=== PATIENT | male | born 2000 | race Caucasian/White ===

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

== ENCOUNTER → 2021-02-19 11:34 | Outpatient (CLI) | payer OTHER, SELFPAY | PROVIDERS: Visit Provider Physician Assistant | DX: U07.1 COVID-19 (principal) | CPT/HCPCS: 87635; U0005; U0003 ==

== ENCOUNTER 2022-08-06 22:39 | Emergency (ER) | payer BC, SELFPAY ==
[2022-08-06 22:39] VITALS: BP 138/80; PULSE 99; RESP 16; TEMP 36.1; BMI 36.3
[2022-08-06] MEDS: Mag Hydrox/Al Hydrox/Simeth 30 ML UDC PO (23:19)
[2022-08-06] MEDS: Ondansetron ODT 4 MG Tablet PO (23:19)
--- NOTE | 2022-08-07 00:03 | ED.VIS.GI ---
HPI HPI - GI History of Present Illness Chief Complaint: Abd Pain Narrative Narrative: 21-year-old male presenting with epigastric pain, nausea. Patient states this is a new problem for him. He states it seems to be flared up by fast food and spicy food. Patient has no history of stomach ulcers or GERD. He has not had any fevers. He denies vomiting or constipation. No diarrhea. No surgeries in his abdomen previously. Patient states the onset of this was about 2 weeks ago. Patient states he was seen in urgent care and was told to do a brat diet. He was not started on a PPI. PFSH PFSH Home Medications ondansetron HCl 8 mg tablet 8 mg PO Q8H PRN nausea and vomiting #20 tabs 07/24/21 [Rx Last Taken Unknown] omeprazole 40 mg capsule,delayed release 40 mg PO DAILY #30 caps 08/06/22 [Rx Last Taken Unknown] ondansetron 4 mg disintegrating tablet 4 mg PO Q8H PRN PRN Nausea #20 tabs 08/06/22 [Rx Last Taken Unknown] sucralfate 100 mg/mL oral suspension (Carafate) 10 ml PO BID PRN epigastric pain #400 mL 08/06/22 [Rx Last Taken Unknown] Allergy/AdvReac Type Severity Reaction Status Date / Time No Known Allergies Allergy Verified 07/24/21 09:43 Family History Other Cancer Diabetes Hypertension Surgical History History of foot surgery Social History Smoking Status: Current some day smoker tobacco type: e-cigarettes ROS ROS ED Constitutional Constitutional ED: Denies chills, fever(s) or sweats Eyes Eyes: Denies blurry vision or change in vision ENT ENT ED: Denies ear pain or sore throat Cardiovascular Cardiovascular: Denies chest pain, palpitations or racing heartbeat Respiratory/Chest Respiratory/Chest: Denies cough, dyspnea or sputum Gastrointestinal Gastrointestinal: Reports abdominal pain and nausea; Denies constipation, diarrhea or vomiting Genitourinary Genitourinary ED: Denies dysuria, hematuria or urinary frequency Musculoskeletal Musculoskeletal: Denies arthralgias, myalgias or neck pain Integumentary Denies abscess, Abrasions or rash Neurologic Neurologic: Denies headache(s), paresthesias or weakness Psychiatric Psychiatric: Denies anxiety, depression, suicidal ideation or suicidal thoughts Endocrine Endocrinology: Denies polydipsia or polyuria EXAM Physical Exam Const Vital Signs: 08/06/22 22:39 08/06/22 22:39 Temperature 97.0 F L 97.0 F L Temperature Source Temporal Temporal Pulse Rate 99 99 Respiratory Rate 16 16 Blood Pressure 138/80 H 138/80 H Blood Pressure Mean 99 99 General Appearance ED: Negative for pallor HEENT Reports normocephalic and moist mucous membranes Eyes PERRL and EOMs intact bilaterally Resp normal respiratory effort Cardio regular rate and regular rhythm GI GI Narrative: Very mild midepigastric pain. Negative Perez sign Narrative: Deferred Neuro oriented x3 and CN's II-XII intact bilaterally Sensorium / Orientation: alert Motor Exam: strength 5/5 throughout Psych mental status grossly normal Attitude: No agitated Skin no rashes or lesions noted and no wounds General Skin Exam: Negative for jaundice or pallor MDM MDM MDM Narrative Medical decision making narrative: Patient presenting with very mild epigastric pain. Its worsened by spicy food and fast food. This likely gastritis versus GERD. Could likely be gastric ulcer. Patient given GI cocktail and Zofran. He feels improved after this. I do not believe he needs blood work or imaging. He is otherwise healthy. I will give him follow-up with GI. He started on a PPI and Zofran. He is given Carafate as well. Patient stable for discharge at this time. Impression: 1. Epigastric pain 2. Nausea Discharge Plan Triage Chief Complaint: Abd Pain ED Provider: Laith Grimaldo Dx/Rx/DC Orders Instructions: GERD Lifestyle Changes, ED GERD (Adult) Prescriptions: New ondansetron 4 mg tablet,disintegrating 4 mg PO Q8H PRN PRN (Reason: Nausea) Qty: 20 0RF omeprazole 40 mg capsule,delayed release(DR/EC) 40 mg PO DAILY Qty: 30 0RF sucralfate [Carafate] 100 mg/mL suspension 10 ml PO BID PRN (Reason: epigastric pain) Qty: 400 0RF No Action ondansetron HCl 8 mg tablet 8 mg PO Q8H PRN (Reason: nausea and vomiting) Qty: 20 0RF Primary Care Provider: Care Physician,No Primary Referrals: Friend,Niko, [Med Staff - Active Staff] - 3-5 Days Care Physician,No Primary [Primary Care Provider] - Disposition Disposition: Home, Self Care
== END 2022-08-07 00:38 | disposition home or self-care (01) ==
LOC: ED 23:15
PROVIDERS: Emergency Provider Student in an Organized Health Care Education/Training Program; Visit Provider Student in an Organized Health Care Education/Training Program
DX: R10.13 Epigastric pain (principal); R11.0 Nausea; F17.290 Nicotine dependence, other tobacco product, uncomplicated
CPT/HCPCS: 99283

== ENCOUNTER → 2022-08-19 | Outpatient (CLI) | payer BC, SELFPAY ==
[2022-08-19 15:29] LABS: Absolute Lymphocyte Count 1.58 X10^3/uL (0.83-4.51); Absolute Neutrophil Count 3.4 X10^3/uL (2.0-7.7); Basophil# 0.05 X10^3/uL; Basophil% 0.9 % (0-1); Eosinophil# 0.08 X10^3/uL; Eosinophils% 1.5 % (0-5); Hematocrit 49.8 % (40-54); Hemoglobin 16.5 g/dL (13.0-16.5); Lymphocyte # 1.58 X10^3/ul (0.83-4.51); Lymphocyte % 29.2 % (19-41); Mean Corp Hgb Conc 33.1 g/dL (32-36); Mean Corpuscular Hgb 28.5 pg (27.0-32.0); Mean Platelet Vol. 11.3 fl (6.2-12.0); Monocyte# 0.32 X10^3/uL; Monocyte% 5.9 % (0-10); NRBC Flagged by Analyzer 0 % (0-5); Neutrophil # 3.38 X10^3/uL (2.7-7.7); Neutrophil % 62.3 % (47-70); Platelet Count 279 K/mm3 (150-450); RBC Distribution Width CV 12.8 % (11.6-14.6); RBC Distribution Width SD 39.8 fl (35.1-43.9); Red Blood Count 5.79 M/mm3 (4.6-6.2); White Blood Count 5.4 K/mm3 (4.4-11.0)
[2022-08-19 16:01] LABS: ALB/GLOB Ratio 1.2 RATIO (0.9-2.4); AST(SGOT) 15 U/L (15-37); Alanine Aminotransfer ALT/SGPT 45 U/L (16-61); Albumin, Serum 4.4 g/dL (3.2-5.0); Alkaline Phosphatase 73 U/L (45-117); Anion Gap 6 (5-15); BUN 10 mg/dL (7-18); BUN/Creat Ratio 7.5 RATIO (10-20); Calcium,Total 10.1 mg/dL (8.5-10.1); Chloride 106 mmol/L (98-107); Cholesterol 183 mg/dL (200); Creatinine, Serum 1.34 mg/dL (0.70-1.30); EST Glomerular Filtration Rate 72 mL/min (>60); Est Glom Filt Rate - Afr Amer 87 mL/min (>60); Globulin 3.7 g/dL (2.2-4.2); Glucose 87 mg/dL (74-106); High Density Lipoprotein 38 mg/dL; Protein, Total 8.1 g/dL (6.4-8.2); Sodium Level 140 mmol/L (136-145); Triglycerides 110 mg/dL; Very Low Density Lipoprotein 22 mg/dL (5-40)
== END | disposition home or self-care (01) ==
PROVIDERS: Visit Provider Internal Medicine
DX: R10.13 Epigastric pain (principal); R74.8 Abnormal levels of other serum enzymes; E78.2 Mixed hyperlipidemia
CPT/HCPCS: 36415; 80053; 80061; 85025

== ENCOUNTER → 2022-08-27 | Outpatient (CLI) | payer BC, SELFPAY ==
[2022-08-27 14:58] LABS: ALB/GLOB Ratio 1.2 RATIO (0.9-2.4); AST(SGOT) 16 U/L (15-37); Alanine Aminotransfer ALT/SGPT 51 U/L (16-61); Albumin, Serum 4.1 g/dL (3.2-5.0); Alkaline Phosphatase 67 U/L (45-117); Anion Gap 3 (5-15); BUN 11 mg/dL (7-18); BUN/Creat Ratio 7.9 RATIO (10-20); Bilirubin, Direct 0.36 mg/dL (0.00-0.30); Calcium,Total 9.3 mg/dL (8.5-10.1); Chloride 109 mmol/L (98-107); EST Glomerular Filtration Rate 68 mL/min (>60); Est Glom Filt Rate - Afr Amer 83 mL/min (>60); Globulin 3.4 g/dL (2.2-4.2); Glucose 100 mg/dL (74-106); Potassium 3.9 mmol/L (3.5-5.1); Protein, Total 7.5 g/dL (6.4-8.2); Sodium Level 142 mmol/L (136-145)
== END | disposition home or self-care (01) ==
LOC: LAB 13:35
PROVIDERS: PCP Internal Medicine; Referring Provider Nurse Practitioner Adult Health; Visit Provider Nurse Practitioner Adult Health
DX: R17 Unspecified jaundice (principal)
CPT/HCPCS: 36415; 80053; 82248

== ENCOUNTER → 2022-08-31 | Outpatient (CLI) | payer BC, SELFPAY ==
[2022-08-31 09:58] LABS: Bacteria 0 SEEN /hpf (None Seen); Mucous, Urine 0 SEEN /hpf (<or=2+); Red Blood Cells-Urine 0 SEEN /hpf (0-5); Squamous Epithelial Cells - UA 0 SEEN /hpf (0-5)
[2022-08-31 10:41] LABS: Color, Urine Yellow (Yellow); Glucose, Dipstick Normal (Normal); Ketone-Dipstick 5 mg/dl (Negative); Leukocyte Esterase-Dipstick Negative /ul (Negative); Nitrite-Dipstick Negative (Negative); Occult Blood-Urine Negative /ul (Negative); Protein-Dipstick 30 mg/dl (Negative); Specific Gravity, Urine 1.025 (1.002-1.030); Urine Bilirubin Dipstick Negative (Negative); Urine Clarity Clear (Clear); Urine Urobilinogen 1 mg/dl (Normal)
[2022-08-31 10:50] LABS: White Blood Cells 0-5 SEEN /hpf (0-5)
== END | disposition home or self-care (01) ==
LOC: LAB 09:55
PROVIDERS: PCP Internal Medicine; Referring Provider Nurse Practitioner Adult Health; Visit Provider Nurse Practitioner Adult Health
DX: R79.89 Other specified abnormal findings of blood chemistry (principal)
CPT/HCPCS: 81001

== ENCOUNTER → 2022-09-02 | Outpatient (CLI) | payer BC, SELFPAY ==
--- NOTE | 2022-09-02 10:00 | US_ITS ---
EXAM: US abdomen, complete. HISTORY: post prandial upper abd pain and diarrhea COMPARISON: None. LIMITATIONS: None. LIVER: Borderline enlarged measuring 17.6 cm. PORTAL VEINS: Normal. GALLBLADDER Size: Normal. Stones/sludge: None. Wall thickness: Normal measuring 2 mm. Pericholecystic fluid: None. Sonographic Perez sign: Negative. EXTRAHEPATIC BILE DUCTS: The partially visualized common duct is normal in caliber measuring 3 mm. PANCREAS: Not well visualized. AORTA: Visualized portion of the abdominal aorta is normal in caliber. KIDNEYS: Normal. SPLEEN: Mildly enlarged measuring 14.6 cm in greatest dimension. ASCITES: None. OTHER: None. CONCLUSION: No gallstones. Mild splenomegaly. Electronically Signed: Horacio Tamez MD at 19:55 EDT , US/Abdomen Complete IMPRESSION: undefined
== END | disposition home or self-care (01) ==
PROVIDERS: PCP Internal Medicine; Referring Provider Nurse Practitioner Adult Health; Visit Provider Nurse Practitioner Adult Health
DX: R10.13 Epigastric pain (principal)
CPT/HCPCS: 76700

== ENCOUNTER → 2022-09-23 | Outpatient (CLI) | payer BC, SELFPAY ==
--- NOTE | 2022-09-23 09:44 | NM_ITS ---
Nuclear medicine HIDA scan Indication: Postprandial epigastric and right upper quadrant pain with nausea and vomiting COMPARISON STUDIES : NM - None. CR - Not available for review at this time. CT - Not available for review at this time. MR - Not available for review at this time. Ultrasound-09/02/2022 Technique: 5.5 mCi of technetium 99m labeled mebrofenin was injected intravenously followed by standard imaging. 2.6 mcg of CCK was injected intravenously for calculation of gallbladder ejection fraction. Findings: There is homogenous activity throughout the liver. Normal excretion of isotope into the proximal small bowel. Activity in the gallbladder is identified at 15 minutes. Gallbladder ejection fraction measures 91%. NM/Hepatobilliary Img w/Pharm Int IMPRESSION: Normal filling of the gallbladder without evidence of acute cholecystitis or biliary obstruction. Electronically Signed: Huan Enciso (Brooks), at 11:30 EDT ,
== END | disposition home or self-care (01) ==
PROVIDERS: PCP Internal Medicine; Referring Provider Nurse Practitioner Adult Health; Visit Provider Nurse Practitioner Adult Health
DX: R10.13 Epigastric pain (principal); R17 Unspecified jaundice
CPT/HCPCS: 78227; A9537; J2805

== ENCOUNTER → 2022-11-04 | Outpatient (CLI) | payer BC, SELFPAY ==
[2022-11-04 12:02] LABS: Absolute Lymphocyte Count 1.93 X10^3/uL (0.83-4.51); Absolute Neutrophil Count 4.1 X10^3/uL (2.0-7.7); Basophil# 0.08 X10^3/uL; Basophil% 1.2 % (0-1); Eosinophil# 0.11 X10^3/uL; Eosinophils% 1.7 % (0-5); Hematocrit 48.7 % (40-54); Hemoglobin 15.9 g/dL (13.0-16.5); Lymphocyte # 1.93 X10^3/ul (0.83-4.51); Lymphocyte % 29.3 % (19-41); Mean Corp Hgb Conc 32.6 g/dL (32-36); Mean Corpuscular Hgb 27.9 pg (27.0-32.0); Mean Corpuscular Volume 85.6 fL (80-94); Mean Platelet Vol. 10.8 fl (6.2-12.0); Monocyte# 0.37 X10^3/uL; Monocyte% 5.6 % (0-10); NRBC Flagged by Analyzer 0 % (0-5); Neutrophil # 4.08 X10^3/uL (2.7-7.7); Neutrophil % 61.9 % (47-70); Platelet Count 274 K/mm3 (150-450); RBC Distribution Width SD 39.8 fl (35.1-43.9); Red Blood Count 5.69 M/mm3 (4.6-6.2); White Blood Count 6.6 K/mm3 (4.4-11.0)
[2022-11-04 12:05] LABS: Erythrocyte Sedimentation Rate 3 mm/hr (0-20)
[2022-11-04 12:40] LABS: Hemoglobin A1c 5.1 % (3.8-5.6)
[2022-11-04 12:43] LABS: ALB/GLOB Ratio 1.1 RATIO (0.9-2.4); AST(SGOT) 21 U/L (15-37); Alanine Aminotransfer ALT/SGPT 42 U/L (16-61); Albumin, Serum 4.1 g/dL (3.2-5.0); Alkaline Phosphatase 72 U/L (45-117); Anion Gap 7 (5-15); BUN 12 mg/dL (7-18); BUN/Creat Ratio 9.4 RATIO (10-20); CRP < 2.90 mg/L (0.0-3.0); Calcium,Total 8.9 mg/dL (8.5-10.1); Chloride 106 mmol/L (98-107); Creatinine, Serum 1.28 mg/dL (0.70-1.30); EST Glomerular Filtration Rate 75 mL/min (>60); Est Glom Filt Rate - Afr Amer 91 mL/min (>60); Ferritin 107 ng/mL (26-388); Globulin 3.6 g/dL (2.2-4.2); Glucose 94 mg/dL (74-106); LDH 153 U/L (87-241); Potassium 4.2 mmol/L (3.5-5.1); Protein, Total 7.7 g/dL (6.4-8.2); Sodium Level 139 mmol/L (136-145)
[2022-11-04 13:02] LABS: HIV - WCH Non-Reactive (Nonreactive)
[2022-11-05 13:09] LABS: Anti-Centromere B Ab <0.2 AI (0.0-0.9); Anti-Chromatin <0.2 AI (0.0-0.9); Anti-Jo <0.2 AI (0.0-0.9); Anti-Mitochondrial AB <20.0 Units (0.0-20.0); Anti-Scleroderma-70 AB <0.2 AI (0.0-0.9); Anti-dsDNA Ab 2 IU/mL (0-9); RNP Ab <0.2 AI (0.0-0.9); SJOGREN'S Anti-SS-A test < 0.2 AI (0.0-0.9); SJOGREN'S Anti-SS-B test < 0.2 AI (0.0-0.9); Smith Ab <0.2 AI (0.0-0.9)
[2022-11-08 15:07] LABS: AFP, Tumor Marker < 1.8 ng/mL (0.0-5.7); Angiotensin Convert Enzyme 37 U/L (14-82); Anti-Smooth Muscle ABS 46 Units (0-19); Ceruloplasmin 20.1 mg/dL (16.0-31.0); Copper, Serum or Plasma 88 ug/dL (63-121); Cytoplasmic Ab (C-ANCA) 1:20 titer (Neg:<1:20); HEPATITIS B SURFACE AG Negative (Negative); Haptoglobin 133 mg/dL (17-317); Hep C Antibodies Non Reactive (Non Reactive); Hepatitis A IgM Antibody Negative (Negative); Hepatitis B Core AB IgM Negative (Negative); Perinuclear Ab (P-ANCA) <1:20 titer (Neg:<1:20)
== END | disposition home or self-care (01) ==
LOC: LAB 11:32
PROVIDERS: PCP Internal Medicine; Referring Provider Nurse Practitioner Adult Health; Visit Provider Nurse Practitioner Adult Health
DX: R17 Unspecified jaundice (principal); R82.2 Biliuria; R79.89 Other specified abnormal findings of blood chemistry
CPT/HCPCS: 36415; 80053; 80074; 82105; 82140; 82164; 82390; 82525; 82728; 83010; 83036; 83516; 83615; 85025; 85610; 85652; 86140; 86225; 86235; 86256; 86703

== ENCOUNTER → 2022-12-22 | Outpatient (CLI) | payer BC, SELFPAY ==
--- NOTE | 2022-12-22 11:33 | US_ITS ---
INDICATION: Male, 22 years old. Epigastric pain, elevated bilirubin EXAMINATION: Ultrasound right upper quadrant TECHNIQUE: Munoz scale and color doppler imaging was performed of the right upper quadrant. Imaging was limited by bowel gas. COMPARISON: Abdominal ultrasound September 02, 2022 FINDINGS: LIVER: There is normal echotexture. Liver size is 17.77 cm. No focal hepatic lesion. There is no free fluid. GALLBLADDER AND BILIARY TREE: No shadowing gallstone, pericholecystic fluid or gallbladder wall thickening is demonstrated. Gallbladder wall thickness is 2.8 mm. The proximal common bile duct measures 2.3 mm, which is within normal limits for the patient''s age. Sonographic Perez''s sign: Negative. PANCREAS: The pancreas is obscured. RIGHT KIDNEY: Kidney size 13.02 x 6.78 x 6.69 cm. Cortical thickness is 2.59 cm. US/Abdomen Limited IMPRESSION: The pancreas is obscured. Liver size upper normal, but stable. Otherwise, normal right upper quadrant ultrasound. Electronically Signed: Ten Farah MD at 12:28 EDT Reading Location ID and State: [id number] / Unknown , Service support ,
== END | disposition home or self-care (01) ==
LOC: US 10:47
PROVIDERS: PCP Internal Medicine; Referring Provider Internal Medicine Gastroenterology; Visit Provider Internal Medicine Gastroenterology
DX: R10.13 Epigastric pain (principal); R82.2 Biliuria
CPT/HCPCS: 76705

== ENCOUNTER 2025-01-21 11:30 | Outpatient (RCR) | payer BC, SELFPAY ==
--- NOTE | 2025-01-03 12:52 | HP.PTEVAL_ITS ---
Patient's Visit Information Visit Information Visit Information: SAQIB HURT is a 24 year old M referred to Physical Therapy by Dr. Paddy Barfield MD with a diagnosis of Right Shoulder Instability. Date of Evaluation: 01/03/25 Physical Therapist: Luisana Nava DPT Visit Plan Frequency: 2x /Week Duration: 4 Weeks Plan: Scapular s/s- below 90 degrees to start HEP Given IE: postural correction, scap retraction, scap PU, levator stretch, table walk away Subjective Subjective: Right shoulder pain- going down a slip and slide- was trying to stop himself- didn't feel a pop but it has been achy since- 07 of December- thought it would get better but it hasn't. His mobility is not good- normal before. Left hand dominate. Worst: 4-5/10 the pain is located on top of the shoulder and in the posterior shoulder- feels stiff. It use to ache but not really anymore. Agg: laying on it- sleeping on it. Eases: gently movement. Best: 0/10. He feels the shoulder continues to get worse. Went to see the MD- he thinks it maybe the labrum. He is not having an MRI until February- he plans to follow up sooner. Pain radiates down the arm to the elbow. No N/T in the hand. 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 Workout- weight lifting- free weights- limited due to range of motion and pain. Feels out of place or unstable. Sleep: disturbed- toss and turns more. He has more stiffness in his neck but no pain or QUINONEZ. PMHX/Meds: no change since saw ortho. Objective Objective: Posture: forward head, guarding of the right UE Gait: decreased arm swing on the right Palpation: tender along supraspinatus, infraspinatus, upper trap and AC joint ROM: Cervical WNL, Shoulder: WNL pain at end range flexion, abduction and IR behind the back Strength: Elbow/Wrist/Marriage Counselor Minister: WNL, Shoulder: Flexion: 19, Abd: 25, IR: 42, ER: 12 pain with testing, Scap: fair- mild winging Sensation: WNL to gross touch bilateral UE Special Tests R Shoulder Drop Sign - IS Test: Negative R Shoulder Empty Can - SS: Negative R Shoulder Belly Press - SupScap: Negative R Shoulder Neer - Impingement: Positive R Shoulder Rosario Dillan - Impingement: Positive R Shoulder Biceps Load Test - Labrum: Positive R Shoulder Speeds Test - Labrum/Biceps: Positive R Shoulder Sulcus Sign - Inferior Laxity: Positive Balance/Special Test Scores Quick DASH Score: 25.0000 Goals Goal 1:: Patient will be I with HEP and progression Goal Time Frame: 4-6 Weeks Goal 2:: Patient will maintain proper posture t/o tx session to demo increased core s/s Goal Time Frame: 4-6 Weeks Goal 3:: Patient will demo full AROM of the right shoulder without pain Goal Time Frame: 4-6 Weeks Goal 4:: Patient will report 80% improvement Goal Time Frame: 4-6 Weeks Rehabilitation Potential Physical Therapy Diagnosis: Patient presents with hypomobility- he has decreased painfree ROM, scap and UE strength and muscular endurance leading to increased pain with ADL's Rehabilitation Potential: Fair Anticipated Interventions Patient/Client Instruction: Educate patient on: Benefits of Fitness Program Therapeutic Exercise to Include: Strength training, Endurance training, Coordination, Agility training, Body mechanics, Flexibilty training, Neuromotor development, Passive ROM, Active ROM, Dynamic Lumbar Stabilization and Scapular Strength/Stabilization For the Purpose of:: To improve muscle performance and motor function TENS: Yes Cryotherapy (ice pack, ice massage): Yes Thermo therapy (hot pack): Yes Ultrasound (thermal/non thermal): Yes Text: Thank you for the opportunity to evaluate your patient. For Medicare and Medicare HMO plans, please review the plan of care and approve it. It will need to be FAXED BACK to us at [phone] for Medicare purposes. For Medicare only, by signing this I certify the plan of care. Please let me know if there are questions or concerns regarding this plan of care. Physician Signature: Date:
--- NOTE | 2025-01-21 12:49 | HP.PTDCSUM ---
Discharge Summary D/C summary: It has been my pleasure to treat SAQIB HURT referred by Dr. Paddy Barfield MD, with the diagnosis of Right Shoulder Instability for a total of 6 visit(s). Discharge Date: Please see the following information for a summary of their discharge status. Subjective Subjective: Pt continues to have sig sleep difficulty secondary to pain. 2/10 pain today Pain R shoulder: Pain Intensity (Out of 10): 2 Overall Improvement % Improvement: 50 Objective Objective/Function: R shoulder pain ranges from 2-8/10 R shoulder MMT: flex= 17, abd= 46, ER= 17, IR= 31 #F R shoulder ROM: flex= 150, abd= 125, ER= 30, IR= moderately limited Pt is I with HEP Goals Goal 1:: Patient will be I with HEP and progression Goal Progress: Goal Met Goal 2:: Patient will maintain proper posture t/o tx session to demo increased core s/s Goal 3:: Patient will demo full AROM of the right shoulder without pain Goal Progress: Not Progressing Goal 4:: Patient will report 80% improvement Goal Progress: Progressing Plan Plan: Discontinue, RTD D/C Information d/c sentence: If there are questions or concerns regarding this patient's physical therapy, please feel free to call me at [phone]. Thank you for the referral of this patient. Sincerely, Ayan Mckeon, PT, ATC Balance/Gait/Functional tests Balance/Special Test Scores Quick DASH Score: 22.7250 Improvement % Improvement: 50
== END 2025-01-21 15:49 | disposition home or self-care (01) ==
LOC: PT 11:30
PROVIDERS: PCP Internal Medicine; Referring Provider Orthopaedic Surgery Sports Medicine; Visit Provider Orthopaedic Surgery Sports Medicine
DX: M25.511 Pain in right shoulder (principal); M25.311 Other instability, right shoulder
CPT/HCPCS: 97110; 97162; 97530

== ENCOUNTER 2025-01-28 12:07 | Outpatient (CLI) | payer BC, SELFPAY ==
--- NOTE | 2025-01-28 12:17 | US_ITS ---
PROCEDURE: NEEDLE PLACEMENT 01/28/2025 REASON FOR EXAM: Persistent right shoulder pain following injury. Concerning for glenoid labral tear. TECHNIQUE: Ultrasound-guided pre MRI right shoulder injection. COMPARISON: None. FINDINGS: Procedure: Following informed consent, and using standard sterile technique, an ultrasound- guided right glenohumeral joint injection was performed via a posterior approach. A 22 gauge spinal needle was placed under sonographic guidance, with injection of a total of 15 mL of a mixture of 10 mL dilute Clariscan, 5 mL normal saline, and 5 mL 1% lidocaine. No complication was encountered, and the patient left the department in good condition without significant complaint. US/Needle Placement IMPRESSION: Successful pre MRI right glenohumeral joint sonographically guided injection. Reading Location: [place] [id number]
--- NOTE | 2025-01-28 13:23 | MRI_ITS ---
PROCEDURE: UPPER EXT JT ONLY W/CONTRAST 01/28/2025 REASON FOR EXAM: PAIN,POSSIBLE INSTABILITY LABRUM TEAR TECHNIQUE: Right shoulder MR arthrogram COMPARISON: Right shoulder study of 12/2019. FINDINGS: The ABER view is limited by poor signal to noise ratio. No abnormal osseous signal is seen. No significant arthritic changes are noted. Intra-articular contrast material is seen of the glenohumeral joint. A [id number] sized partial tear of the anterior aspect of the distal supraspinatus tendon is seen, probably extending to the bursal surface. No tendon retraction is noted. The remaining rotator cuff shows no apparent tear. No glenoid labral tear is identified. The long head of the biceps tendon appears intact. MRI/Upper Ext Jt Only W/Contrast IMPRESSION: [id number] sized partial tear of the anterior aspect of the distal supra spinatus tendon, probably extending to the bursal surface. No tendon retraction is noted. Reading Location: [facility]
== END 2025-01-28 23:59 | disposition home or self-care (01) ==
LOC: RAD 12:09 → US 12:12
PROVIDERS: PCP Internal Medicine; Referring Provider Orthopaedic Surgery Sports Medicine; Visit Provider Orthopaedic Surgery Sports Medicine
DX: M25.511 Pain in right shoulder (principal); M25.311 Other instability, right shoulder
CPT/HCPCS: 73222; 76942